=== PATIENT | male | born 1990 | race African-American/Black ===

== ENCOUNTER 2018-11-29 01:48 | Emergency (ER) | payer SELFPAY ==
[~2018-11-29] VITALS: Ht 170.2 cm; Wt 72.6 kg
--- NOTE | 2018-11-29 01:54 | Emergency Room Report ---
History of Present Illness General Chief Complaint: Alcohol Intoxication Source: Patient, EMS Present Illness HPI Is a 28-year-old male with unknown medical problem. He was brought in by EMS with alcohol intoxication. He was partying tonight and was been drinking. His friend got him an Uber to take him home. He was too intoxicated so the lifter/driver called 911. Unable to get any history from this patient. No trauma. He had vomiting. Allergies: Coded Allergies: No Known Allergies (Unverified , 11/29/18) Patient History Past Medical History: see triage record, old chart reviewed Past Surgical History: unable to obtain Pertinent Family History: unable to obtain Social History: Reports: alcohol use Immunizations: other Reviewed Nursing Documentation: PMH: Agreed; PSxH: Agreed Nursing Documentation-PMH Past Medical History: No Stated History Review of Systems Gastrointestinal: Reports: nausea, vomiting All Other Systems: limited - Secondary to intoxication Physical Exam Vital Signs Date Time Temp Pulse Resp B/P (MAP) Pulse Ox O2 Delivery O2 Flow Rate FiO2 11/29/18 01:42 97.9 85 12 121/75 98 Room Air vitals normal Sp02 EP Interpretation: reviewed, normal General Appearance: well appearing, no apparent distress, other - Intoxicated Head: normocephalic, atraumatic Eyes: bilateral eye PERRL, bilateral eye EOMI ENT: hearing grossly normal, normal pharynx Neck: full range of motion, supple, no meningismus Respiratory: chest non-tender, lungs clear, normal breath sounds Cardiovascular #1: regular rate, rhythm, no murmur Gastrointestinal: normal bowel sounds, non tender, no mass, no organomegaly, no bruit, non-distended Musculoskeletal: back normal, normal range of motion Neurologic: grossly normal Psychiatric: mood/affect normal Skin: warm/dry Medical Decision Making Diagnostic Impression: Primary Impression: Acute alcoholic intoxication Qualified Codes: F10.920 - Alcohol use, unspecified with intoxication, uncomplicated ER Course Patient presents with alcohol intoxication. No trauma to warrant x-ray or CT scan. We will observe until clinical sobriety. Last Vital Signs Date Time Temp Pulse Resp B/P (MAP) Pulse Ox O2 Delivery O2 Flow Rate FiO2 11/29/18 01:42 97.9 85 12 121/75 98 Room Air Status: improved Disposition: HOME, SELF-CARE Condition: Stable Scripts No Active Prescriptions or Reported Meds Patient Instructions: Alcohol Intoxication, [id number] Additional Instructions: Follow-up with your doctor in 7 days. Return if worse. Jacob Kaur MD Nov 29, 2018 01:54
[2018-11-29 02:14] VITALS: BP 121/75
--- NOTE | 2018-11-29 02:17 | NUR ---
ED Nurse Note: Mary Beth was brought by RA from the street due to ETOH. Per EMT [facility] sent patient home by [facility] and due to his ETOH uber delivery motorcycle driver droped him of on the streets. Patient disoriented, has N/V. VSS at this time, skin is dry intact, warm to touch. Will continue to monitor.
--- NOTE | 2018-11-29 04:24 | NUR ---
ED Nurse Note: Patient is in the bed sleeping, no acute disstress noticed, VSS at this time.
[2018-11-29 04:25] VITALS: BP 121/75
[2018-11-29 06:02] VITALS: BP 120/65
--- NOTE | 2018-11-29 06:05 | NUR ---
ED Nurse Note: Pt cleared by health care Provider for discharge. DC instructions/prescription was given and explained to pt and verbalized understanding of teachings. All medical deviecs such as ID band removed. Pt is AAO x4, ambulatory and left with all personal belongings.
== END 2018-11-29 06:05 | disposition home or self-care (01) ==
LOC: EDBD 01:48 → EMR 02:26
DX: F10.129 Alcohol abuse with intoxication, unspecified (principal); R11.2 Nausea with vomiting, unspecified
CPT/HCPCS: 36415; 96360; 99284; G0480; 80329